=== PATIENT | male | born 1990 | race African-American/Black ===

== ENCOUNTER 2017-07-10 16:35 | Emergency (ER) | payer OTHER ==
[~2017-07-10] VITALS: Ht 175.3 cm; Wt 72.6 kg
[~2017-07-10 16:35] MED LIST: AMOXICILLIN 50500 M1 PO; APAP/CODEINE ELI5 M1 OR
[2017-07-10] MEDS ORDERED: CIPROFLOXACIN500 M1 PO (17:03)
[2017-07-10] MEDS ORDERED: NAPROSYN500 MG PO (17:03)
[2017-07-10] MEDS ORDERED: ULTRAM 50MG TAB50 MG PO (17:03)
[2017-07-10 17:09] VITALS: BP 111/47
[2017-07-10 17:24] LABS: URINE BILIRUBIN NEGATIVE (Negative); URINE BLOOD NEGATIVE (Negative); URINE COLOR YELLOW; URINE GLUCOSE-RANDOM* NEGATIVE (Negative); URINE KETONES NEGATIVE (Negative); URINE LEUKOCYTES-REFLEX NEGATIVE (Negative); URINE PROTEIN (DIPSTICK) NEGATIVE (Negative)
== END 2017-07-10 17:45 | disposition home or self-care (01) ==
LOC: ER 16:35
PROVIDERS: Emergency Medicine
DX: N45.1 Epididymitis (principal)

== ENCOUNTER 2018-03-16 21:03 | Emergency (ER) | payer OTHER ==
[~2018-03-16] VITALS: Ht 175.3 cm; Wt 72.6 kg
[~2018-03-16 21:03] MED LIST changes: +CIPROFLOXACIN500 M1 PO; +NAPROSYN500 MG PO; +ULTRAM 50MG TAB50 MG PO
[2018-03-16] MEDS ORDERED: MOBIC7.5 MG PO (21:53)
[2018-03-16] MEDS ORDERED: NORCO 5-325 TA1 EACH PO (21:53)
[2018-03-16 22:57] VITALS: BP 132/76
== END 2018-03-16 22:58 | disposition home or self-care (01) ==
LOC: ER 21:03
DX: S63.501A Unspecified sprain of right wrist, initial encounter (principal); W18.39XA Other fall on same level, initial encounter; Y92.89 Other specified places as the place of occurrence of the external cause; Y93.89 Activity, other specified; Y99.8 Other external cause status

== ENCOUNTER 2018-08-12 18:00 | Emergency (ER) | payer BC ==
[~2018-08-12] VITALS: Ht 175.3 cm; Wt 81.7 kg
[~2018-08-12 18:00] MED LIST changes: +MOBIC7.5 MG PO; +NORCO 5-325 TA1 EACH PO
[2018-08-12] MEDS ORDERED: FLONASE 0.05%50 MCG NASAL (18:15)
[2018-08-12] MEDS ORDERED: IBUPROFEN 400400 M2 PO (18:15)
[2018-08-12] MEDS ORDERED: WAL-PHED10 MG PO (18:15)
[2018-08-12 18:48] VITALS: BP 111/68
== END 2018-08-12 18:48 | disposition home or self-care (01) ==
LOC: ER 18:00
DX: H69.81 Other specified disorders of Eustachian tube, right ear (principal)

== ENCOUNTER 2019-05-18 08:26 | Emergency (ER) | payer OTHER ==
[~2019-05-18] VITALS: Ht 172.7 cm; Wt 80.7 kg
[~2019-05-18 08:26] MED LIST changes: +FLONASE 0.05%50 MCG NASAL; +IBUPROFEN 400400 M2 PO; +WAL-PHED10 MG PO
[2019-05-18 08:32] VITALS: BP 112/73
== END 2019-05-18 09:25 | disposition home or self-care (01) ==
LOC: ER 08:26
DX: G89.29 Other chronic pain (principal); M79.671 Pain in right foot; M79.672 Pain in left foot; Z98.890 Other specified postprocedural states